=== PATIENT | female | born 1995 | race Caucasian/White ===

== ENCOUNTER 2018-12-08 18:53 | Emergency (ER) | payer SELFPAY ==
[~2018-12-08] VITALS: Ht 170.2 cm; Wt 72.6 kg
[2018-12-08 18:57] VITALS: Ht 170.2 cm; Wt 72.6 kg
[2018-12-08 21:08] LABS: BASOPHIL % 0.1 % (0-2); PLATELET COUNT 196 x10^3mcL (130-400); RED CELL DISTRIBUTION WIDTH 12.4 % (11.5-14.5)
[2018-12-08 21:19] LABS: CARBON DIOXIDE 24.2 mmol/L (21-32); CHLORIDE SERUM 103 mmol/L (98-107); CREATININE SERUM 0.9 mg/dL (0.6-1.0); GFR1 > 60 mL/min; GLUCOSE SERUM 111 mg/dL (74-106); POTASSIUM SERUM 3.7 mmol/L (3.5-5.1); SODIUM SERUM 138 mmol/L (136-145)
[2018-12-08 21:23] LABS: AMPHETAMINE QUAL UR NONE DETECTED (See below)
[2018-12-08 21:24] LABS: ALBUMIN 4.7 g/dL (3.4-5.0); ALKALINE PHOSPHATASE 72 U/L (46-116); ALT/SGPT 20 U/L (14-59); AST/SGOT 26 U/L (15-37); BILIRUBIN TOTAL 0.82 mg/dL (0.20-1.00); CHOLESTEROL 136 mg/dL (<200); CHOLESTEROL/HDL RATIO 3.7; HDL CHOLESTEROL 37 mg/dL (40-60); TOTAL PROTEIN, SERUM 8.2 g/dL (6.4-8.2); TRIGLYCERIDES 74 mg/dL (<150)
[2018-12-08 22:49] VITALS: BP 111/64
== END 2018-12-08 22:49 | disposition home or self-care (01) ==
LOC: ED 18:53
PROVIDERS: Emergency Medicine
DX: R07.89 Other chest pain (principal); F14.10 Cocaine abuse, uncomplicated; H53.8 Other visual disturbances
CPT/HCPCS: 36415; 85378; J7030; Q0092